=== PATIENT | male | born 1960 | race Caucasian/White ===

== ENCOUNTER 2017-04-16 07:29 | Emergency (ER) | payer BC ==
[~2017-04-16] VITALS: Ht 165.1 cm; Wt 82.8 kg
[2017-04-16 07:41] VITALS: BP 256/116; PULSE 97; RESP 20; TEMP 98.7; O2SAT 96
[2017-04-16 08:58] VITALS: BP 229/107; PULSE 82; RESP 20; O2SAT 97
--- NOTE | 2017-04-16 09:07 | PD ---
HPI Chief Complaint: Musculoskeletal Complaint Time Seen by Provider: 08:55 Travel History International Travel<30 days: No Contact w/Intl Traveler<30days: No Traveled to known affect area: No History of Present Illness HPI This 56-year-old male says he fell Saturday night. He hit the right side of his ribs has been having pain there ever since. The pain is aggravated by deep breathing. he has not had any fever or chills. He does smoke. Pain is having is aggravated by breathing and movement and direct palpation. He has been able to eat. PFSH Social History Tobacco Use: No Allergies-Medications (Allergen,Severity, Reaction): Coded Allergies: No Known Allergies (Verified Allergy, Unknown, 04/16/17) Reported Meds & Prescriptions Reported Meds & Active Scripts Active No Active Prescriptions or Reported Medications Review of Systems General / Constitutional: No: Fever, Chills Eyes: No: Diploplia, Blurred Vision HENT: No: Headaches, Vertigo Cardiovascular: Positive: Chest Pain or Discomfort Respiratory: Positive: Pleuritic Pain, No: Wheezing Gastrointestinal: No: Nausea, Vomiting Genitourinary: No: Urgency, Frequency Musculoskeletal: Positive: Myalgias, Pain Skin: No Rash, No Itching Neurologic: No: Weakness, Dizziness Endocrine: No: Heat Intolerance Hematologic/Lymphatic: No: Easy Bruising Physical Exam Narrative GENERAL: Well-developed male SKIN: Focused skin assessment warm/dry. HEAD: Atraumatic. Normocephalic. EYES: Pupils equal and round. No scleral icterus. No injection or drainage. ENT: No nasal bleeding or discharge. Mucous membranes pink and moist. NECK: Trachea midline. No JVD. CARDIOVASCULAR: Regular rate and rhythm. No murmur appreciated. RESPIRATORY: No accessory muscle use. Clear to auscultation. Breath sounds equal bilaterally. There is right sided chest wall tenderness GASTROINTESTINAL: Abdomen soft, non-tender, nondistended. Hepatic and splenic margins not palpable. MUSCULOSKELETAL: No obvious deformities. No clubbing. No cyanosis. No edema. NEUROLOGICAL: Awake and alert. No obvious cranial nerve deficits. Motor grossly within normal limits. Normal speech. PSYCHIATRIC: Appropriate mood and affect; insight and judgment normal. Data Data Last Documented VS Vital Signs Date Time Temp Pulse Resp B/P (MAP) Pulse Ox O2 Delivery O2 Flow Rate FiO2 04/16/17 08:58 82 20 229/107 (147) 97 04/16/17 07:41 98.7 Orders Orders Ribs, Uni (W/Exp Cxr-Min 3vw) (04/16/17 08:59) Urinalysis - C+S If Indicated (04/16/17 08:59) Acetamin-Hydrocod 325-5 Mg ([place] 5-325 (04/16/17 09:45) Labs Laboratory Tests Test 04/16/17 09:20 [facility] Medical Decision Making Medical Screen Exam Complete: Yes Emergency Medical Condition: Yes Medical Record Reviewed: Yes Differential Diagnosis Differential includes contusions, fracture, pneumothorax Narrative Course X-ray shows fracture of the posterior lateral portion of ribs 8 through 11 without pneumothorax Diagnosis Primary Impression: Multiple rib fractures Additional Instructions: Rest, take pain medication as directed. Avoid heavy lifting. Return if fever or shortness of breath Scripts Hydrocodone-Acetaminophen (Hydrocodone-Acetaminophen) 7.5-300 Mg Tab 1 TAB PO Q4H Y for PAIN, #20 TAB 0 Refills Prov: Evan De La Paz MD 04/16/17 Disposition: 01 DISCHARGE HOME Condition: Stable Evan De La Paz MD Apr 16, 2017 09:07
[2017-04-16 09:29] LABS: BILIRUBIN, URINE NEG (NEG); BLOOD, URINE NEG (NEG); GLUCOSE,URINE 1000 OR GREATER mg/dL (NEG); KETONE, URINE TRACE mg/dL (NEG); NITRITE,URINE NEG (NEG); PH, URINE 5.5 (5.0-8.5); URINE COLOR YELLOW (YELLW/STRAW); URINE LEUKOCYTE ESTERASE NEG (NEG)
[2017-04-16] MEDS ORDERED: ACETAMINOPHEN/HYDROcodone 325 MG/5 MG TAB PO ONE (09:45)
--- NOTE | 2017-04-16 09:51 | RADRPT ---
EXAM DATE/TIME: 04/16/2017 09:14 [facility] COMPARISON: No previous studies available for comparison. INDICATIONS : Fall, right side rib pain. MEDICAL HISTORY : None. SURGICAL HISTORY : None. ENCOUNTER: Initial ACUITY: 3 days PAIN SCORE: 10/10 LOCATION: Right lateral ribs FINDINGS: Acute nondisplaced posterior lateral right eighth through 11th rib fractures. The remaining ribs are unremarkable. No lytic or blastic lesions. No pneumothorax. A scoliotic and degenerative thoracic spi ne. Heart is mildly enlarged. Minimal right basilar atelectasis. CONCLUSION: 8 through 11th rib fractures without pneumothorax. Carlos Enrique Partida Jr., MD on April 16, 2017 at 9:48 Board Certified Radiologist. This report was verified electronically.
[2017-04-16] MEDS ORDERED: HYDR-2376 PO (10:09)
[2017-04-16 10:14] LABS: RBC, URINE 0-3 /hpf (0-3); SQUAMOUS EPITHELIAL CELL URINE 0-5 /hpf (0-5)
[2017-04-16 10:17] VITALS: BP 224/104; PULSE 89; RESP 20; O2SAT 96
[2017-04-16] MEDS ORDERED: cloNIDine HCL 0.1 MG TAB PO ONE (10:30)
[2017-04-16 10:35] LABS: AUTOMATED NEUTROPHIL # 5.4 TH/MM3 (1.8-7.7); BASOPHIL # 0.1 TH/MM3 (0-0.2); BASOPHIL % 0.9 % (0.0-2.0); EOSINOPHIL % 0.2 % (0.0-4.0); HEMOGLOBIN 16.3 GM/DL (13.0-17.0); LYMPH % 19.9 % (9.0-44.0); LYMPHOCYTE # 1.5 TH/MM3 (1.0-4.8); MEAN CELL VOLUME 91.5 FL (80.0-100.0); MEAN CORPUSCULAR HEMOGLOBIN 32.5 PG (27.0-34.0); MEAN CORPUSCULAR HGB CONC 35.5 % (32.0-36.0); MEAN PLATELET VOLUME 8.6 FL (7.0-11.0); MONO % 5.6 % (0.0-8.0); MONOCYTE # 0.4 TH/MM3 (0-0.9); NEUT % 73.4 % (16.0-70.0); PLATELET COUNT 171 TH/MM3 (150-450); RED BLOOD COUNT 5.03 MIL/MM3 (4.50-5.90); RED CELL DISTRIBUTION WIDTH 12.7 % (11.6-17.2); WHITE BLOOD COUNT 7.4 TH/MM3 (4.0-11.0)
[2017-04-16 10:59] LABS: CALCIUM 9.3 MG/DL (8.5-10.1)
[2017-04-16 11:03] LABS: CREATININE 0.9 MG/DL (0.60-1.30)
[2017-04-16 11:07] VITALS: BP 223/96; PULSE 98; RESP 20; O2SAT 96
[2017-04-16] MEDS ORDERED: METF500T PO (11:26)
== END 2017-04-16 11:35 | disposition home or self-care (01) ==
LOC: PHED 07:29
DX: S22.41XA Multiple fractures of ribs, right side, initial encounter for closed fracture (principal); W19.XXXA Unspecified fall, initial encounter; Z72.0 Tobacco use
CPT/HCPCS: 71101; 80048; 81001; 85025; 99284